=== PATIENT | male | born 1950 | race Caucasian/White ===

== ENCOUNTER 2021-02-14 04:29 | Emergency (ER) | payer MEDICARE, OTHER ==
[2021-02-14] MEDS ORDERED: Sodium Chloride 0.9% 1000 ML 1,000 ML IV STA (04:43)
[2021-02-14] MEDS ORDERED: solu-MEDROL 125 MG, Sterile H2O 10 ml 2 ML IV ONE ×2 (04:43)
[2021-02-14] MEDS ORDERED: LOPRESSOR 5 MG/5 ML INJECTION IV ONE ×5 (04:48→05:34)
[2021-02-14 04:49] LABS: A-aADO2 549; ABG HEMOGLOBIN 10.2; ABG POTASSIUM 4.5 (3.5-5.1); ABG SITE LEFT RADIAL; ALLEN TEST OK? YES; ARTERIAL BLD GAS O2 SATURATION 98.7 % (95-100); ARTERIAL BLOOD GAS BASE EXCESS -0.1 (-2.0-2.0); ARTERIAL BLOOD GAS FIO2 100 %; ARTERIAL BLOOD GAS PCO2 36 mmHg (35-45); ARTERIAL BLOOD GAS PO2 119 mmHg (75-100); ARTERIAL BLOOD GAS VENT MODE BiPAP; ARTERIAL BLOOD GAS pH 7.43 (7.35-7.45); CARBOXYHEMOGLOBIN 1.8 % THgb (0.0-6.9); HCO3- 23.9 (22-28); HGB O2 SAT 96.5 g/dF (94-100); Lactic Acid 2.1 (0.4-2.0); Methhemoglobin 0.5 % (1.4-1.5)
[2021-02-14] MEDS ORDERED: Sodium Chloride 0.9% 1000 ML 1,000 ML ONE ×2 (04:50→05:56)
[2021-02-14] MEDS ORDERED: Sterile H2O 10 ml IJ ONE (04:50)
[2021-02-14] MEDS ORDERED: solu-MEDROL ONE (04:50)
[2021-02-14 05:14] LABS: Hematocrit 32.6 % (42-50); Hemoglobin 9.9 gm/dl (12.5-18.0); Mean Cell Volume 97.3 fl (78-100); Mean Corpuscular Hemoglobin 29.6 pg (26-32); Mean Corpuscular Hgb Concent. 30.4 g/dl (32-36); Mean Platelet Volume 9.5 fl (7.5-11.0); Platelet Count 323 K/mm3 (150-450); Red Blood Count 3.35 M/mm3 (4.1-5.6); Red Cell Distribution Width 16.2 % (11.5-14.0); White Blood Count 13.5 K/mm3 (4.0-10.5)
[2021-02-14 05:16] LABS: INR 1.68 (0.8-3.0); PROTIME 19.8 SECONDS (9.4-12.5)
[2021-02-14 05:21] LABS: ALBUMIN 2.7 g/dL (3.5-5.0); ALKALINE PHOSPHATASE 79 U/L (38-126); ANION GAP 12.3 MEQ/L (5-15); BLOOD UREA NITROGEN 37 mg/dL (9-20); CHLORIDE 102 mmol/L (98-107); Calcium 7.5 mg/dL (8.4-10.2); Carbon Dioxide 25 mmol/L (22-30); Creatinine 1 0.81 mg/dL (0.66-1.25); EST GLOMERULAR FILTRATION RATE > 60.0 ML/MIN; Glucose 278 mg/dL (74-106); Potassium 4.6 mmol/L (3.5-5.1); SGOT/AST 81 U/L (17-59); SGPT/ALT 51 U/L (0-50); SODIUM 135 mmol/L (137-145); Total Protein 5.5 g/dL (6.3-8.2)
[2021-02-14 05:40] LABS: BAND 5 % (0.0-2.0); Basophil 1 % (0.0-1.0); Lymphocytes 3 % (24-44); Monocyte 3 % (0.0-12.0); Neutrophils 88 % (36.-66.); Platelet Estimate NORMAL (NORMAL); Total Cells Counted 100
[2021-02-14 05:41] LABS: Hypochromia 1+; Polychromasia 1+
[2021-02-14] MEDS ORDERED: LOPRESSOR 5 MG/5 ML INJECTION IV SCH (05:45)
[2021-02-14] MEDS ORDERED: Sodium Chloride 0.9% 1000 ML 1,000 ML IV SCH (06:00)
--- NOTE | 2021-02-14 06:18 | ERPHSYRPT ---
- History of Present Illness Source: patient, family, EMS Exam Limitations: no limitations Patient Subjective Stated Complaint: SOB. Patient and EMS state that he was discharged from [facility] 2 days ago after spending approx 25 days in the hospital for COVID-19 infection. Patient did have a negative COVID swab prior to release from [facility]. Patient has still been going to [facility] daily for IV atb infusions since his release for post Covid related pneumonia. Denies any pain. Triage Nursing Assessment: Patient arrived by ambulance. Patient is alert and oriented and answering question appropriately. He is SOB with labored breaths; using abdominal muscles to breath. Currently receiving 02 therapy at 15L per non-rebreather mask. RT called to ER. 2+ pitting edema noted to BLE. Anterior lungs clear at this time. Timing/Duration: today Cough Quality/Degree: dry cough Possible Cause: frequent episodes Modifying Factors: Improves With: nothing Associated Symptoms: cough, shortness of breath Hx Tetanus, Diphtheria Vaccination/Date Given: Yes Immunizations Up to Date: Yes <COLT NAG - Last Filed: 02/14/21 06:31> <TONY ANTUNEZ - Last Filed: 02/17/21 08:23> - History of Present Illness Time Seen by Provider: 02/14/21 04:40 Physician History: Patient is a 70-year-old male who presents by ambulance with a report from EMS of the new onset of atrial fibrillation with a rapid ventricular response. His heart rate per EMS was greater than 150 and irregular his blood pressure was also low with a systolic of around 90. The tried 15 mg of Cardizem to try to convert him chemically from his atrial fib which resulted in his blood pressure dropping to the 70s. For that reason they stopped in our ER prior to going on to [facility]. He had just been approximately 25 days in [facility] for COVID-19. He was negative approximately 2 to 3 days ago when he was discharged. He is still receiving IV Rocephin on an outpatient basis and is due for a dose today. On admission by EMS he was at 15 L on a nonrebreather. Patient reports the onset of atrial fibrillation was associated with straining at stool. (COLT ANG) Allergies/Adverse Reactions: codeine Allergy (Verified 02/14/21 04:51) Home Medications: Albuterol Sulfate [Proventil Hfa] 2 puff PO Q4H PRN PRN 02/14/21 [History] Ascorbic Acid [Vitamin C] 1,000 mg PO DAILY 02/14/21 [History] Aspirin [Aspirin EC] 81 mg PO DAILY 02/14/21 [History] Benzonatate 200 mg PO Q8H PRN PRN 02/14/21 [History] Ceftriaxone Sodium [Ceftriaxone] 1 g IV DAILY 02/14/21 [History] Cholecalciferol (Vitamin D3) [Vitamin D3] 1,000 unit PO DAILY 02/14/21 [History] Dexamethasone [Decadron] 0.5 mg PO DAILY 02/14/21 [History] Doxycycline Hyclate 100 mg [Vibramycin 100 MG] 100 mg PO BID 02/14/21 [History] Fluoxetine HCl 20 mg [Prozac 20 MG] 20 mg PO DAILY 02/14/21 [History] Guaifenesin 600 mg ER [Mucinex 600MG ER Tabs] 600 mg PO BID 02/14/21 [H istory] Insulin Glargine [Lantus Insulin] 20 units SQ DAILY 02/14/21 [History] Insulin Lispro [Humalog] See Protocol SQ AC 02/14/21 [History] Metoprolol Tartrate 50 mg [Lopressor 50 MG] 50 mg PO BID 02/14/21 [History] Rivaroxaban 10 mg Tablet [Xarelto 10 mg Tablet] 10 mg PO DAILY 02/14/21 [History] Tamsulosin HCl 0.4 mg [Flomax 0.4 MG] 0.4 mg PO HS 02/14/21 [History] Zinc Sulfate 220 mg PO DAILY 02/14/21 [History] Travel Risk - International Travel Have you traveled outside of the country in past 3 weeks: No - Coronavirus Screening Are you exhibiting any of the following symptoms?: Yes Symptoms: Shortness of Breath Close contact with a COVID-19 positive Pt in past 14-21 Days: No - Vaccine Status Have you recieved a Covid-19 vaccination: No <COLT ANG - Last Filed: 02/14/21 06:31> - Review of Systems Constitutional: Weakness, Weight Loss Eyes: No Symptoms Ears, Nose, & Throat: No Symptoms Respiratory: Cough, Dyspnea, Dyspnea on Exertion (FERGUSON), Wheezing Cardiac: Palpitations Abdominal/Gastrointestinal: No Abdominal Pain, No Nausea, No Vomiting, No Diarrhea Genitourinary Symptoms: No Dysuria Musculoskeletal: Arthralgias, Myalgias Skin: No Rash Neurological: No Dizziness, No Focal Weakness, No Sensory Changes Psychological: No Symptoms Endocrine: No Symptoms Hematologic/Lymphatic: No Symptoms Immunological/Allergic: No Symptoms <ASHIACOLT Filed: 02/14/21 06:31> - Past Medical History Pertinent Past Medical History: Yes Neurological History: No Pertinent History ENT History: No Pertinent History Cardiac History: Arrhythmia, Hypertension Respiratory History: Pneumonia Endocrine Medical History: Diabetes Type II Musculoskeletal History: No Pertinent History GI Medical History: No Pertinent History History: No Pertinent History, Other Psycho-Social History: Depression Male Reproductive Disorders: Prostate Problems Other Medical History: BPH, AFIB, COVID-19 - Past Surgical History Past Surgical History: Yes Neuro Surgical History: No Pertinent History Cardiac: No Pertinent History Respiratory: No Pertinent History Gastrointestinal: Hernia Repair Genitourinary: No Pertinent History Musculoskeletal: No Pertinent History Male Surgical History: No Pertinent History - Social History Smoking Status: Former smoker Exposure to second hand smoke: No Drug Use: none Patient Lives Alone: No <COLT ANG Filed: 02/14/21 06:31> - Physical Exam General Appearance: severe distress, alert, cachetic, thin Eye Exam: PERRL/EOMI, eyes nml inspection Ears, Nose, Throat Exam: normal ENT inspection, TMs normal, pharynx normal, moist mucous membranes Neck Exam: normal inspection, non-tender, supple, full range of motion Respiratory Exam: respiratory distress, diminished breath sounds, crackles/rales, rhonchi, wheezing Cardiovascular Exam: tachycardia, irregular Gastrointestinal/Abdomen Exam: soft, normal bowel sounds Back Exam: normal inspection, normal range of motion Extremity Exam: pedal edema Neurologic Exam: alert, oriented x 3, cooperative, normal mood/affect, sensation nml, No motor deficits Skin Exam: normal color, warm, dry, No rash SpO2 Interpretation: hypoxic, O2 applied SpO2: 100 O2 Delivery: BiPap/CPAP <COLT ANG Filed: 02/14/21 06:31> - Nursing Vital Signs Nursing Vital Signs: Initial Vital Signs Temperature 98 F 02/14/21 04:36 Pulse Rate 150 H 02/14/21 04:36 Respiratory Rate 37 H 02/14/21 04:36 Blood Pressure 98/53 02/14/21 04:36 O2 Sat by Pulse Oximetry 86 L 02/14/21 04:36 Pain Scale Pain Intensity 0 - Course Nursing assessment & vital signs reviewed: Yes EKG Interpreted by Me: RATE (143), A-fib, Left [place] Deviation, prolonged QT interval, Non-specific ST Changes - Radiology Exams Chest X-ray Interpretation: Interpreted by me (Bilateral extensive opacities in both l devi meek) <COLT ANG - Last Filed: 02/14/21 06:31> Ordered Tests: Medication Summary Discontinued Medications Generic Name Dose Route Start Last Admin Trade Name Zakq PRN Reason Stop Dose Admin Methylprednisolone Sodium 0 mg 02/14/21 04:43 02/14/21 04:53 Succinate 125 mg/ Sterile IV 02/14/21 04:44 125 mg Water 2 ml STAT ONE Administration Digoxin 0.5 mg 02/14/21 06:37 02/14/21 07:01 Lanoxin 0.5 Mg/2 Ml Injection IV 02/14/21 06:38 0.5 mg STAT ONE Administration Digoxin Confirm 02/14/21 06:59 Lanoxin 0.5 Mg/2 Ml Injection Administered 02/14/21 07:00 Dose 0.5 mg .ROUTE .STK-MED ONE Sodium Chloride 1,000 mls @ 999 mls/hr 02/14/21 04:43 02/14/21 05:56 Sodium Chloride 0.9% 1000 Ml IV 02/14/21 05:43 Infused .Q1H1M STA Infusion Sodium Chloride Confirm 02/14/21 04:50 Sodium Chloride 0.9% 1000 Ml Administered 02/14/21 04:51 Dose 1,000 mls @ ud .ROUTE .STK-MED ONE Sodium Chloride Confirm 02/14/21 05:56 Sodium Chloride 0.9% 1000 Ml Administered 02/14/21 05:57 Dose 1,000 mls @ ud .ROUTE .STK-MED ONE Sodium Chloride 1,000 mls @ 100 mls/hr 02/14/21 06:00 02/14/21 05:59 Sodium Chloride 0.9% 1000 Ml IV 03/16/21 05:59 100 mls/hr .Q10H OLIVERIO Administration Methylprednisolone Sodium Succinate Confirm 02/14/21 04:50 Solu-Medrol Administered 02/14/21 04:51 Dose 125 mg .ROUTE .STK-MED ONE Metoprolol Tartrate 5 mg 02/14/21 04:48 02/14/21 04:54 Lopressor 5 Mg/5 Ml Injection IV 02/14/21 04:49 5 mg STAT ONE Administration Metoprolol Tartrate Confirm 02/14/21 04:48 Lopressor 5 Mg/5 Ml Injection Administered 02/14/21 04:49 Dose 5 mg IV .STK-MED ONE Metoprolol Tartrate 5 mg 02/14/21 05:17 02/14/21 05:19 Lopressor 5 Mg/5 Ml Injection IV 02/14/21 05:18 5 mg STAT ONE Administration Metoprolol Tartrate Confirm 02/14/21 05:17 Lopressor 5 Mg/5 Ml Injection Administered 02/14/21 05:18 Dose 5 mg IV .STK-MED ONE Metoprolol Tartrate 5 mg 02/14/21 05:45 02/14/21 05:36 Lopressor 5 Mg/5 Ml Injection IV 03/16/21 05:44 5 mg Q12H OLIVERIO Administration Metoprolol Tartrate Confirm 02/14/21 05:34 Lopressor 5 Mg/5 Ml Injection Administered 02/14/21 05:35 Dose 5 mg IV .STK-MED ONE Sterile Water Confirm 02/14/21 04:50 Sterile H2o 10 Ml Administered 02/14/21 04:51 Dose 10 ml IJ .STK-MED ONE Lab/Rad Data: Laboratory Result Diagrams 02/14/21 05:07 02/14/21 05:07 Laboratory Results 02/14/21 02/14/21 02/14/21 Range/Units 05:15 05:11 05:07 WBC (4.0-10.5) K/mm3 RBC (4.1-5.6) M/mm3 Hgb (12.5-18.0) gm/dl Hct (42-50) % MCV (78-100) fl MCH (26-32) pg MCHC (32-36) g/dl RDW (11.5-14.0) % Plt Count (150-450) K/mm3 MPV (7.5-11.0) fl Segmented Neutrophils (36.-66.) % Band Neutrophils (0.0-2.0) % Lymphocytes (Manual) (24-44) % Monocytes (Manual) (0.0-12.0) % Basophils (Manual) (0.0-1.0) % Hypochromia Platelet Estimate (NORMAL) RBC Morphology Polychromasia PT (9.4-12.5) SECONDS INR (0.8-3.0) D-Dimer 2080 H* (215-500) ng/mL Puncture Site pCO2 (35-45) mmHg pO2 (75-100) mmHg Base Excess (-2.0-2.0) O2 Saturation (94-100) g/dF ABG pH (7.35-7.45) ABG HCO3 (22-28) ABG O2 Sat (Measured) (95-100) % Margarito Test A-a Gradient a/A Ratio Hemoglobin Carboxyhemoglobin (0.0-6.9) % THgb Methemoglobin (1.4-1.5) % Potassium (3.5-5.1) Temperature C POC O2 Flow Rate % Vent Mode Inspiratory BiPAP Expiratory BiPAP Sodium (137-145) mmol/L Chloride (98-107) mmol/L Carbon Dioxide (22-30) mmol/L Anion Gap (5-15) MEQ/L BUN (9-20) mg/dL Creatinine (0.66-1.25) mg/dL Estimated GFR ML/MIN Glucose (74-106) mg/dL Lactic Acid (0.4-2.0) Calcium (8.4-10.2) mg/dL Total Bilirubin (0.2-1.3) mg/dL AST (17-59) U/L ALT (0-50) U/L Alkaline Phosphatase (38-126) U/L Serum Total Protein (6.3-8.2) g/dL Albumin (3.5-5.0) g/dL Procalcitonin 0.140 H (0.030-0.080) ng/mL SARS-CoV-2 (PCR) NEGATIVE (NEGATIVE) 02/14/21 02/14/21 02/14/21 Range/Units 05:07 05:07 05:07 WBC 13.5 H (4.0-10.5) K/mm3 RBC 3.35 L (4.1-5.6) M/mm3 Hgb 9.9 L (12.5-18.0) gm/dl Hct 32.6 L (42-50) % MCV 97.3 (78-100) fl MCH 29.6 (26-32) pg MCHC 30.4 L (32-36) g/dl RDW 16.2 H (11.5-14.0) % Plt Count 323 (150-450) K/mm3 MPV 9.5 (7.5-11.0) fl Segmented Neutrophils 88 H (36.-66.) % Band Neutrophils 5 H (0.0-2.0) % Lymphocytes (Manual) 3 L (24-44) % Monocytes (Manual) 3 (0.0-12.0) % Basophils (Manual) 1 (0.0-1.0) % Hypochromia 1+ Platelet Estimate NORMAL (NORMAL) RBC Morphology ABNORMAL Polychromasia 1+ PT 19.8 H (9.4-12.5) SECONDS INR 1.68 (0.8-3.0) D-Dimer (215-500) ng/mL Puncture Site pCO2 (35-45) mmHg pO2 (75-100) mmHg Base Excess (-2.0-2.0) O2 Saturation (94-100) g/dF ABG pH (7.35-7.45) ABG HCO3 (22-28) ABG O2 Sat (Measured) (95-100) % Margarito Test A-a Gradient a/A Ratio Hemoglobin Carboxyhemoglobin (0.0-6.9) % THgb Methemoglobin (1.4-1.5) % Potassium 4.6 (3.5-5.1) Temperature C POC O2 Flow Rate % Vent Mode Inspiratory BiPAP Expiratory BiPAP Sodium 135 L (137-145) mmol/L Chloride 102 (98-107) mmol/L Carbon Dioxide 25 (22-30) mmol/L Anion Gap 12.3 (5-15) MEQ/L BUN 37 H (9-20) mg/dL Creatinine 0.81 (0.66-1.25) mg/dL Estimated GFR > 60.0 ML/MIN Glucose 278 H (74-106) mg/dL Lactic Acid (0.4-2.0) Calcium 7.5 L (8.4-10.2) mg/dL Total Bilirubin 0.50 (0.2-1.3) mg/dL AST 81 H (17-59) U/L ALT 51 H (0-50) U/L Alkaline Phosphatase 79 (38-126) U/L Serum Total Protein 5.5 L (6.3-8.2) g/dL Albumin 2.7 L (3.5-5.0) g/dL Procalcitonin (0.030-0.080) ng/mL SARS-CoV-2 (PCR) (NEGATIVE) 02/14/21 Range/Units 04:43 WBC (4.0-10.5) K/mm3 RBC (4.1-5.6) M/mm3 Hgb (12.5-18.0) gm/dl Hct (42-50) % MCV (78-100) fl MCH (26-32) pg MCHC (32-36) g/dl RDW (11.5-14.0) % Plt Count (150-450) K/mm3 MPV (7.5-11.0) fl Segmented Neutrophils (36.-66.) % Band Neutrophils (0.0-2.0) % Lymphocytes (Manual) (24-44) % Monocytes (Manual) (0.0-12.0) % Basophils (Manual) (0.0-1.0) % Hypochromia Platelet Estimate (NORMAL) RBC Morphology Polychromasia PT (9.4-12.5) SECONDS INR (0.8-3.0) D-Dimer (215-500) ng/mL Puncture Site LEFT RADIAL pCO2 36 (35-45) mmHg pO2 119 H (75-100) mmHg Base Excess -0.1 (-2.0-2.0) O2 Saturation 96.5 (94-100) g/dF ABG pH 7.43 (7.35-7.45) ABG HCO3 23.9 (22-28) ABG O2 Sat (Measured) 98.7 (95-100) % Margarito Test YES A-a Gradient 549 a/A Ratio 0.18 Hemoglobin 10.2 Carboxyhemoglobin 1.8 (0.0-6.9) % THgb Methemoglobin 0.5 L (1.4-1.5) % Potassium 4.5 (3.5-5.1) Temperature 37.0 C POC O2 Flow Rate 100 % Vent Mode BiPAP Inspiratory BiPAP 14 Expiratory BiPAP 8 Sodium (137-145) mmol/L Chloride (98-107) mmol/L Carbon Dioxide (22-30) mmol/L Anion Gap (5-15) MEQ/L BUN (9-20) mg/dL Creatinine (0.66-1.25) mg/dL Estimated GFR ML/MIN Glucose (74-106) mg/dL Lactic Acid 2.1 H (0.4-2.0) Calcium (8.4-10.2) mg/dL Total Bilirubin (0.2-1.3) mg/dL AST (17-59) U/L ALT (0-50) U/L Alkaline Phosphatase (38-126) U/L Serum Total Protein (6.3-8.2) g/dL Albumin (3.5-5.0) g/dL Procalcitonin (0.030-0.080) ng/mL SARS-CoV-2 (PCR) (NEGATIVE) - Progress Progress: improved Air Movement: fair Blood Culture(s) Obtained: Yes Antibiotics given: No <COLT ANG - Last Filed: 02/14/21 06:31> <TONY ANTUNEZ - Last Filed: 02/17/21 08:23> - Progress Progress Note: 02/14/21 07:23 Patient seen , doing ok on CPAP, O2 sats are 95 %. HR 121 after IV digoxin (HARMONY,TONY) - Departure Departure Disposition: Transfer Critical Care Time(excluding separately billable procedures): Critical 30-74 mins <COLT ANG - Last Filed: 02/14/21 06:31> - Departure Departure Disposition: Transfer Critical Care Time: Yes Critical Care Time(excluding separately billable procedures): Critical 30-74 mins <TONY ANTUNEZ - Last Filed: 02/17/21 08:23> - Departure Clinical Impression: Atrial fibrillation with rapid ventricular response Pneumonia Qualifiers: Pneumonia type: due to unspecified organism Laterality: unspecified laterality Lung location: unspecified part of lung Qualified Code(s): J18.9 - Pneumonia, unspecified organism Condition: Fair Referrals: DOCTOR,NO FAMILY [Primary Care Provider] -
[2021-02-14] MEDS ORDERED: Lanoxin 0.5 MG/2 ML INJECTION IV ONE (06:37)
[2021-02-14] MEDS ORDERED: Lanoxin 0.5 MG/2 ML INJECTION ONE (06:59)
--- NOTE | 2021-02-14 07:37 | XRAY ---
Indication: Short of breath. Comparison: None Portable apical lordotic chest demonstrates diffuse bilateral hazy airspace disease without consolidation/large effusion. Heart borderline enlarged. Bony thorax intact.
[2021-02-14 08:16] VITALS: BP 105/80; PULSE 121; O2SAT 100
== END 2021-02-14 09:12 | disposition critical access hospital (66) ==
LOC: ED 04:29
DX: I48.20 Chronic atrial fibrillation, unspecified (principal); J18.9 Pneumonia, unspecified organism; R05 Cough; R06.02 Shortness of breath; Z79.899 Other long term (current) drug therapy; R00.2 Palpitations
CPT/HCPCS: 36415; 36600; 71045; 80053; 82375; 82803; 83605; 84145; 85025; 85379; 85610; 93005; 94002; 96360; 96374; 96375; 96376; 99285; 99291; U0003; J1160; J2930